=== PATIENT | male | born 2000 | race African-American/Black ===

== ENCOUNTER 2021-02-13 16:17 | Emergency (ER) | payer OTHER, SELFPAY ==
[2021-02-13 16:57] LABS: Absolute Lymphocytes (CBC) 0.6 K/uL (0.7-4.9); Basophils % 0.4 % (0-1.3); Hematocrit 46.9 % (39.6-49.0); Lymphocytes % 3.3 % (15.3-44.8); MPV 6.6 fL (7.6-11.3); RBC Red Blood Cell Count 5.35 M/uL (4.33-5.43)
[2021-02-13 17:10] LABS: ALT/SGPT 26 U/L (12-78); AST/SGOT 22 U/L (15-37); Albumin 4.8 g/dL (3.4-5.0); Alkaline Phosphatase 70 U/L (45-117); BUN Blood Urea Nitrogen 17 mg/dL (7-18); Bicarbonate 26 mmol/L (21-32); Bilirubin Direct 0.2 mg/dL (0-0.2); Bilirubin Total 0.7 mg/dL (0.2-1.0); Glucose Level 89 mg/dL (74-106); Lipase 42 U/L (73-393); Potassium 3.9 mmol/L (3.5-5.1); Protein, Total 8.4 g/dL (6.4-8.2); Sodium Level 141 mmol/L (136-145)
[2021-02-13 17:16] LABS: Barbiturates NEGATIVE (NEGATIVE); Benzodiazepines NEGATIVE (NEGATIVE); Cocaine NEGATIVE (NEGATIVE); METHAMPHETAM NEGATIVE (NEGATIVE); Methadone NEGATIVE (NEGATIVE); Opiates NEGATIVE (NEGATIVE); Phencyclidine NEGATIVE (NEGATIVE); THC Cannibis POSITIVE (NEGATIVE)
[2021-02-13] MEDS ORDERED: ONDANSETRON 4 MG/2 ML VIAL ONE (17:42)
[2021-02-13] MEDS ORDERED: NA CHLORIDE 0.9% 1,000 ML ONE (17:43)
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
[2021-02-13 18:07] LABS: Blood Morphology Comment NOT SEEN (NOT SEEN); Platelet Estimate ADEQ; White Blood Cell Scan OK (OK)
[2021-02-13 18:24] VITALS: BP 117/68; TEMP 98.1; O2SAT 99
== END 2021-02-13 18:12 | disposition home or self-care (01) ==
LOC: ER 16:17
DX: R11.2 Nausea with vomiting, unspecified (principal); R53.1 Weakness; Z72.0 Tobacco use
CPT/HCPCS: 36415; 80048; 80076; 80307; 83690; 85025; 96374; 99283; J2405; J7030

== ENCOUNTER 2021-06-26 18:38 | Emergency (ER) | payer SELFPAY ==
[2021-06-26 19:41] LABS: Absolute Lymphocytes (CBC) 1.5 K/uL (0.7-4.9); Hematocrit 43.8 % (39.6-49.0); Lymphocytes % 26.1 % (15.3-44.8); MPV 6.2 fL (7.6-11.3); RBC Red Blood Cell Count 4.99 M/uL (4.33-5.43)
[2021-06-26 20:02] LABS: ALT/SGPT 22 U/L (12-78); AST/SGOT 17 U/L (15-37); Albumin 4.3 g/dL (3.4-5.0); Alkaline Phosphatase 60 U/L (45-117); BUN Blood Urea Nitrogen 13 mg/dL (7-18); Bicarbonate 31 mmol/L (21-32); Bilirubin Total 0.4 mg/dL (0.2-1.0); Glucose Level 106 mg/dL (74-106); Potassium 3.8 mmol/L (3.5-5.1); Protein, Total 7.9 g/dL (6.4-8.2); Sodium Level 137 mmol/L (136-145)
--- NOTE | 2021-06-26 20:06 | RAD REPORT ---
EXAM DESCRIPTION: RAD - Chest Single View - 06/26/2021 7:51 pm CLINICAL HISTORY: CHEST PAIN Chest pain. COMPARISON: No comparisons FINDINGS: Portable technique limits examination quality. The lungs are grossly clear. The heart is normal in size. No displaced fractures. IMPRESSION: No acute intrathoracic process suspected.
[2021-06-26 20:07] LABS: Bilirubin Direct 0.1 mg/dL (0-0.2)
[2021-06-26 20:08] LABS: Troponin High Sensitivity < 3.00 pg/mL (<58.9)
[2021-06-26 20:18] LABS: SARS-COV-2 RT PCR NEGATIVE (NEGATIVE)
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
--- NOTE | 2021-06-26 21:04 | EDPHYS ---
Physician Documentation [facility] Name: Connor Parra Age: 21 yrs Sex: Male : 2000 Arrival Date: 06/26/2021 Time: 18:38 Bed 11 Private MD: JEANETTE Physician Joshua Rosenthal HPI: 06/26 18:43 This 21 yrs old Black Male presents to ER via Ambulatory with complaints of Chest Pain, jmm Cough, Chest Congestion. 18:43 The patient or guardian reports chest pain that is located primarily in the substernal jmm area. The pain does not radiate. Associated signs and symptoms: Pertinent positives: palpitations. The chest pain is described as aching, sharp. Duration: The patient or guardian reports multiple episodes, that wax and wane. Modifying factors: The symptoms are alleviated by nothing. the symptoms are aggravated by nothing. Patient states most recent episode began earlier today today after drinking red bull. Patient also complains of ongoing congestion, sinus pressure.. Historical: - Allergies: 18:52 No Known Allergies; ww - Home Meds: 18:52 None [Active]; ww - PMHx: 18:52 None; ww - PSHx: 18:52 R hand; ww - Immunization history:: Adult Immunizations not up to date. - Social history:: Smoking status: Patient reports the use of cigarette tobacco products, smokes one-half pack cigarettes per day, Patient uses street drugs, marijuana. ROS: 18:43 Constitutional: Negative for fever, chills, and weight loss, Respiratory: Negative for jmm shortness of breath, cough, wheezing, and pleuritic chest pain. 18:43 Cardiovascular: Positive for chest pain, palpitations. 18:43 All other systems are negative. Exam: 18:43 Constitutional: This is a well developed, well nourished patient who is awake, alert, jmm and in no acute distress. Head/Face: atraumatic. Eyes: EOMI, no conjunctival erythema appreciated 18:43 Neck: Trachea midline, Supple Chest/axilla: Normal chest wall appearance and motion. Cardiovascular: Regular rate and rhythm. No edema appreciated Respiratory: Normal respirations, no respiratory distress appreciated Abdomen/GI: Non distended, soft Back: Normal ROM Skin: General appearance color normal MS/ Extremity: Moves all extremities, no obvious deformities appreciated, no edema noted to the lower extremities Neuro: Awake and alert Psych: Behavior is normal, Mood is normal, Patient is cooperative and pleasant 18:43 ENT: Posterior pharynx: erythema, that is moderate. Vital Signs: 18:51 BP 131 / 78; Pulse 88; Resp 18; Temp 97.3; Pulse Ox 100% on R/A; Weight 65.77 kg; ww Height 5 ft. 7 in. (170.18 cm); Pain 0/10; 20:23 BP 109 / 73; Pulse 62; Resp 15 S; Pulse Ox 99% on R/A; lg3 21:10 BP 110 / 71; Pulse 72; Resp 15; Pulse Ox 99% on R/A; lg3 18:51 Body Mass Index 22.71 (65.77 kg, 170.18 cm) ww MDM: 19:12 Patient medically screened. gato 21:03 Data reviewed: vital signs, nurses notes. Counseling: I had a detailed discussion with viridiana the patient and/or guardian regarding: the historical points, exam findings, and any diagnostic results supporting the discharge/admit diagnosis, lab results, radiology results, the need for outpatient follow up, to return to the emergency department if symptoms worsen or persist or if there are any questions or concerns that arise at home. ED course: Patient is alert nontoxic in appearance in the ED. Imaging studies were negative along with EKG which was normal, patient advised to discontinue energy drinks and caffeine. Patient otherwise advised follow-up PCP and otherwise given strict return precautions. Patient understood agrees to plan of care.. 06/26 18:42 Order name: COVID-19/FLU A+B (Document "Date of Onset" if Symptomatic); Complete Time: [facility] 20:19 06/26 18:42 Order name: Strep; Complete Time: 19:53 [facility] 06/26 19:20 Order name: Basic Metabolic Panel; Complete Time: 20:11 [facility] 06/26 19:20 Order name: CBC with Diff; Complete Time: 19:53 [facility] 06/26 19:20 Order name: LFT's; Complete Time: 20:11 [facility] 06/26 19:20 Order name: Troponin HS; Complete Time: 20:11 [facility] 06/26 19:03 Order name: EKG - Nurse/Tech; Complete Time: 19:03 st1 06/26 19:20 Order name: XRAY Chest (1 view); Complete Time: 20:11 [facility] 06/26 19:20 Order name: Cardiac monitoring; Complete Time: 19:30 [facility] 06/26 19:20 Order name: IV Saline Lock; Complete Time: 19:26 [facility] 06/26 19:20 Order name: Labs collected and sent; Complete Time: 19:26 [facility] 06/26 19:20 Order name: O2 Per Protocol; Complete Time: 19:27 [facility] 06/26 19:20 Order name: D-Dimer; Complete Time: 20:07 [facility] 06/26 19:43 Order name: Throat Culture [facility] 06/26 19:20 Order name: O2 Sat Monitoring; Complete Time: 19:27 [facility] Administered Medications: No medications were administered Disposition: 06/27 18:28 Co-signature as Attending Physician, Joshua Rosenthal MD I agree with the assessment and gato plan of care. Disposition Summary: 06/26/21 21:04 Discharge Ordered Location: Home [facility] Condition: Stable [facility] Diagnosis - Acute pharyngitis, unspecified [facility] - Chest pain, unspecified [facility] Followup: [facility] - With: Private Physician - When: 2 - 3 days - Reason: Recheck today's complaints, Continuance of care, Re-evaluation by your physician Discharge Instructions: - Discharge Summary Sheet [facility] - Nonspecific Chest Pain, Adult jm - Pharyngitis [facility] Forms: - Medication Reconciliation Form [facility] - Thank You Letter [facility] - Antibiotic Education [facility] - Prescription Opioid Use [facility] Prescriptions: - cefdinir 300 mg Oral capsule - take 1 capsule by ORAL route every 12 hours for 10 days; 20 capsule; Refills: [facility] 0, Product Selection Permitted Signatures: Dispatcher [employer] Joshua Contreras MD MD cha Mickail, Joel, PA PA jmm Wood, Whitney, RN RN ww Tingle, Shellie, RN RN st1
[2021-06-26 22:34] VITALS: TEMP 97.3
[2021-06-26 22:35] VITALS: O2SAT 99
[2021-06-26 22:37] VITALS: BP 110/71
== END 2021-06-26 21:26 | disposition home or self-care (01) ==
LOC: ER 18:38
DX: R07.9 Chest pain, unspecified (principal); J02.9 Acute pharyngitis, unspecified; F17.210 Nicotine dependence, cigarettes, uncomplicated; Z20.822 Contact with and (suspected) exposure to COVID-19
CPT/HCPCS: 0240U; 36415; 71045; 80048; 80076; 84484; 85025; 85379; 87070; 87081; 93005; 99285

== ENCOUNTER 2021-09-02 12:33 | Emergency (ER) | payer SELFPAY ==
--- NOTE | 2021-09-02 14:03 | RAD REPORT ---
EXAM DESCRIPTION: US - Scrotum Testicles - 09/02/2021 1:55 pm CLINICAL HISTORY: scrotal swelling, pain Pain and swelling in the scrotum. COMPARISON: No comparisons FINDINGS: The right testicle 3.9 x 3.1 x 2.4 cm. No intratesticular masses or evidence of testicular torsion. The left testicle 4.7 x 3.4 x 2.9 cm. No intratesticular masses or evidence of testicular torsion. Increased blood flow is seen to the left epididymis. No pathologic fluid collections. IMPRESSION: Left epididymitis is suspected.
[2021-09-02] MEDS ORDERED: LIDOCAINE 1% MPF 5 ML VIAL ONE (14:33)
[2021-09-02] MEDS ORDERED: CEFTRIAXONE 500 MG/VIAL ONE (14:33)
--- NOTE | 2021-09-02 15:00 | EDPHYS ---
Physician Documentation [facility] Name: Connor Parra Age: 21 yrs Sex: Male : 2000 Arrival Date: 09/02/2021 Time: 12:35 Bed 10 Private MD: JEANETTE Physician Joshua Rosenthal HPI: 09/02 12:57 This 21 yrs old Black Male presents to ER via Ambulatory with complaints of Testicular jmm Swelling, Testicular Pain, Low Back Pain - swelling/discoloration. 12:57 The patient presents with swelling, that is mild. Onset: The symptoms/episode jmm began/occurred gradually. Modifying factors: The symptoms are alleviated by nothing, the symptoms are aggravated by nothing. Associated signs and symptoms: Pertinent negatives: fever. The patient has not experienced similar symptoms in the past. Is a 21-year-old male with no [place] conditions presents emerged from with complaints of scrotal swelling and pain. Patient did have some concerns he might have an STI. Denies fever.. Historical: - Allergies: 12:41 No Known Allergies; ld1 - Home Meds: 12:41 None [Active]; ld1 - PMHx: 12:41 None; ld1 - PSHx: 12:41 R hand; ld1 - Immunization history:: Adult Immunizations up to date. - Social history:: Smoking status: Patient reports the use of cigarette tobacco products, smokes one-half pack cigarettes per day, Patient/guardian denies using alcohol. ROS: 14:57 Constitutional: Negative for fever, chills, and weight loss, Cardiovascular: Negative jmm for chest pain, palpitations, and edema, Respiratory: Negative for shortness of breath, cough, wheezing, and pleuritic chest pain. 14:57 : Positive for urinary symptoms. 14:57 All other systems are negative. Exam: 14:57 Constitutional: This is a well developed, well nourished patient who is awake, alert, jmm and in no acute distress. Head/Face: atraumatic. Eyes: EOMI, no conjunctival erythema appreciated ENT: Moist Mucus Membranes Neck: Trachea midline, Supple Chest/axilla: Normal chest wall appearance and motion. Cardiovascular: Regular rate and rhythm. No edema appreciated Respiratory: Normal respirations, no respiratory distress appreciated Abdomen/GI: Non distended, soft 14:57 MS/ Extremity: Moves all extremities, no obvious deformities appreciated, no edema noted to the lower extremities Neuro: Awake and alert Psych: Behavior is normal, Mood is normal, Patient is cooperative and pleasant 14:57 : Epididymal tenderness appreciated on physical exam.. Vital Signs: 12:39 BP 139 / 75; Pulse 76; Resp 18; Temp 98.7(TE); Pulse Ox 97% on R/A; Weight 72.57 kg; ld1 Height 5 ft. 7 in. (170.18 cm); Pain 7/10; 13:00 BP 129 / 77; Pulse 74; Resp 18; Pulse Ox 98% on R/A; ld1 12:39 Body Mass Index 25.06 (72.57 kg, 170.18 cm) ld1 MDM: 12:57 Patient medically screened. gato 14:58 Data reviewed: vital signs, nurses notes. Counseling: I had a detailed discussion with viridiana the patient and/or guardian regarding: the historical points, exam findings, and any diagnostic results supporting the discharge/admit diagnosis, lab results, the need for outpatient follow up, to return to the emergency department if symptoms worsen or persist or if there are any questions or concerns that arise at home. ED course: Patient is alert nontoxic appearance in the ED. Ultrasound revealed epididymitis. Will be put on a course of antibiotics. Patient otherwise given strict return precautions. Patient understood agrees plan of care.. 09/02 13:03 Order name: US Scrotum Testicles; Complete Time: 14:04 bethany Administered Medications: 14:38 Drug: Rocephin (cefTRIAXone) 500 mg Route: IM; Site: left deltoid; iw Disposition Summary: 09/02/21 14:59 Discharge Ordered Location: Home [facility] Condition: Stable bethany Diagnosis - Epididymitis bethany Followup: viridiana - With: Richard Neely MD - When: 2 - 3 days - Reason: Recheck today's complaints, Continuance of care, Re-evaluation by your physician Discharge Instructions: - Discharge Summary Sheet viridiana - Epididymitis [facility] Forms: - Medication Reconciliation Form [facility] - Thank You Letter viridiana - Antibiotic Education viridiana - Prescription Opioid Use [facility] Prescriptions: - Doxycycline Hyclate 100 mg Oral Tablet - take 1 tablet by ORAL route every 12 hours; 20 tablet; Refills: 0, Product [facility] Selection Permitted - Diclofenac Sodium 75 mg Oral Tablet Sustained Release - take 1 tablet by ORAL route 2 times per day; 30 tablet; Refills: 0, Product viridiana Selection Permitted Signatures: Dispatcher [employer] Joshua Contreras MD MD cha Mickail, Joel, PA PA jmm Williams, Irene RN RN iw Purvi Montes RN RN ld1
--- NOTE | 2021-09-02 15:00 | ER ---
Nurse's Notes [facility] Name: Connor Parra Age: 21 yrs Sex: Male : 2000 Arrival Date: 09/02/2021 Time: 12:35 Bed 10 Private MD: Diagnosis: Epididymitis Presentation: 09/02 12:39 Chief complaint: Patient states: Testicular swelling, tenderness, low back pain, "dark ld1 spot on lower left flank." - began 2 weeks ago. Today I woke up, my back was hurting pretty bad. Coronavirus screen: At this time, the client does not indicate any symptoms associated with coronavirus-19. Ebola Screen: No symptoms or risks identified at this time. Initial Sepsis Screen: Does the patient meet any 2 criteria? No. Patient's initial sepsis screen is negative. Does the patient have a suspected source of infection? No. Patient's initial sepsis screen is negative. Risk Assessment: Do you want to hurt yourself or someone else? Patient reports no desire to harm self or others. Onset of symptoms was September 02, 2021. 12:39 Method Of Arrival: Ambulatory ld1 12:39 Acuity: BELTRNA 3 ld1 Triage Assessment: 12:41 General: Appears in no apparent distress. uncomfortable, Behavior is calm, cooperative, ld1 appropriate for age. Pain: Complains of pain in low back area, left low back, left testicle and right testicle Pain does not radiate. Pain currently is 7 out of 10 on a pain scale. Quality of pain is described as throbbing. EENT: No signs and/or symptoms were reported regarding the EENT system. Neuro: Level of Consciousness is awake, alert, obeys commands, Oriented to person, place, time, situation. Respiratory: Airway is patent Respiratory effort is even, unlabored. : Reports pain in bilateral flank(s), testicle. Historical: - Allergies: 12:41 No Known Allergies; ld1 - Home Meds: 12:41 None [Active]; ld1 - PMHx: 12:41 None; ld1 - PSHx: 12:41 R hand; ld1 - Immunization history:: Adult Immunizations up to date. - Social history:: Smoking status: Patient reports the use of cigarette tobacco products, smokes one-half pack cigarettes per day, Patient/guardian denies using alcohol. Screenin:00 Abuse screen: Denies threats or abuse. Denies injuries from another. Nutritional ld1 screening: No deficits noted. Tuberculosis screening: No symptoms or risk factors identified. Fall Risk None identified. Assessment: 13:00 Reassessment: See triage assessment. ld1 Vital Signs: 12:39 BP 139 / 75; Pulse 76; Resp 18; Temp 98.7(TE); Pulse Ox 97% on R/A; Weight 72.57 kg; ld1 Height 5 ft. 7 in. (170.18 cm); Pain 7/10; 13:00 BP 129 / 77; Pulse 74; Resp 18; Pulse Ox 98% on R/A; ld1 12:39 Body Mass Index 25.06 (72.57 kg, 170.18 cm) ld1 ED Course: 12:35 Patient arrived in ED. as 12:41 Triage completed. ld1 12:41 Arm band placed on right wrist. ld1 12:51 Elias Oscar PA is PHCP. [facility] 12:51 Joshua Rosenthal MD is Attending Physician. [facility] 13:00 Purvi Montes, FRANCIA is Primary Nurse. ld1 13:00 Patient has correct armband on for positive identification. Placed in gown. Bed in low ld1 position. Call light in reach. Side rails up X2. pvc monitor on. Pulse ox on. NIBP on. Door closed. Noise minimized. Warm blanket given. 13:00 No provider procedures requiring assistance completed. ld1 13:48 US Scrotum Testicles In Process Unspecified. EDMS 14:59 Richard Neely MD is Referral Physician. [facility] Administered Medications: 14:38 Drug: Rocephin (cefTRIAXone) 500 mg Route: IM; Site: left deltoid; iw Medication: 13:00 VIS not applicable for this client. ld1 Outcome: 14:59 Discharge ordered by . viridiana 15:11 Patient left the ED. em1 Signatures: Dispatcher [employer] EDMS Elias Oscar PA PA jmm Martinez, Amelia as Williams, Irene, RN RN Rivera Luna em1 Purvi Montes, FRANCIA RN ld1
[2021-09-02 15:49] VITALS: TEMP 98.7
[2021-09-02 15:51] VITALS: BP 129/77; O2SAT 98
== END 2021-09-02 15:11 | disposition home or self-care (01) ==
LOC: ER 12:33
DX: N45.1 Epididymitis (principal); F17.210 Nicotine dependence, cigarettes, uncomplicated
CPT/HCPCS: 76870; 96372; 99284; J0696